=== PATIENT | male | born 2000 | race Two or more races ===

== ENCOUNTER 2024-10-20 18:26 | Emergency (ER) | payer SELFPAY ==
[2024-10-20 20:19] LABS: HEPATITIS C AB NON-REACTIVE (Non-React)
[2024-10-20 21:07] LABS: RAPID PLASMA REAGIN,RPR NON-REACTIVE (NONREACTIVE)
[2024-10-20 21:49] LABS: C. TRACHOMATIS BY PCR NOT DETECTED; N. GONORRHOEAE BY PCR NOT DETECTED
[2024-10-23 15:42] LABS: HSV SUBTYPE SOURCE Not Provided; HSV1 SUBTYPE BY PCR Not Detected; HSV2 SUBTYPE BY PCR Not Detected
== END 2024-10-20 20:07 | disposition home or self-care (01) ==
LOC: JD.ED 18:26
DX: Z20.2 Contact with and (suspected) exposure to infections with a predominantly sexual mode of transmission (principal)
CPT/HCPCS: 36415; 86592; 86803; 87491; 87529; 87591; 99282; 99283